=== PATIENT | female | born 1970 | race Caucasian/White ===

== ENCOUNTER 2018-01-29 20:43 | Emergency (ER) | payer MEDICAID ==
[2018-01-29 21:10] VITALS: BP 133/77; PULSE 68; RESP 18; TEMP 99; O2SAT 99
[2018-01-29] MEDS ORDERED: Tdap Vaccine 0.5 ml Vial (10-64 yrs) IM ONE (21:14)
--- NOTE | 2018-01-29 21:15 | ED PDOC ---
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 Patient came right to ED for eval. She is not sure of last tetanus shot. PMD: Pedro Cloud Past Medical History Reviewed: Historical Data, Nursing Documentation, Vital Signs Vital Signs: Last Vital Signs Temp 99.0 F 01/29/18 20:58 Pulse 68 01/29/18 20:58 Resp 18 01/29/18 20:58 BP 133/77 01/29/18 20:58 Pulse Ox 99 01/29/18 20:58 - Medical History PMH: No Chronic Diseases - Surgical History Surgical History: - Family History Family History: States: No Known Family Hx - Living Arrangements Living Arrangements: With Family - Social History Current smoker - smoking cessation education provided: No Alcohol: None Drugs: Denies - Immunization History Hx Tetanus Toxoid Vaccination: No (not sure of last tetanus) - Home Medications Home Medications: Ambulatory Orders Medication Instructions Recorded Ciprofloxacin [Cipro] 500 mg PO BID #14 tab 05/31/16 Dicyclomine [Bentyl] 20 mg PO Q6 PRN #12 tab 05/31/16 Famotidine [Pepcid] 40 mg PO DAILY #10 tab 05/31/16 Omeprazole 40 mg PO DAILY #30 tab 05/31/16 Amoxicillin/Clavulanate [Augmentin 1 tab PO BID #14 tab 01/29/18 875 MG-125 MG] Ibuprofen [Motrin Tab] 800 mg PO Q8 PRN #20 tab 01/29/18 - Allergies Allergies/Adverse Reactions: Allergies Allergy/AdvReac Type Severity Reaction Status Date / Time No Known Allergies Allergy Verified 06/21/15 15:40 Wells Criteria for PE - Wells Criteria for Pulmonary Embolism Clinical Signs and Symptoms of DVT: No P.E is #1 Diagnosis, or Equally Likely: No Heart Rate >100: No Immobilization at least 3 days;Surgery previous 4 weeks: No Previous, objectively diagnosed PE or DVT: No Hemoptysis: No Malignancy w/treatment within 6 months, or palliative: No Total Score: 0 Review of Systems ROS Statement: Except As Marked, All Systems Reviewed And Found Negative Skin: Positive for: Other (laceration to left ankle) Physical Exam - Reviewed Nursing Documentation Reviewed: Yes Vital Signs Reviewed: Yes - Physical Exam Appears: Positive for: Well, Non-toxic, No Acute Distress Head Exam: Positive for: ATRAUMATIC, NORMAL INSPECTION, NORMOCEPHALIC Skin: Positive for: Normal Color. Negative for: Rash Eye Exam: Positive for: Normal appearance Extremity: Positive for: Other (3 cm laceration noted to posterior aspect of left ankle, minimal active bleeding, full range of motion of left ankle and foot ) Neurologic/Psych: Positive for: Alert, Oriented - ECG O2 Sat by Pulse Oximetry: 99 (RA) Pulse Ox Interpretation: Normal - Other Rad Left ankle x-ray X-Ray: Interpreted by Me, Viewed By Me X-Ray Interpretation: no fx, no dis Medical Decision Making Medical Decision Making: Time: 21:14 Initial Impression: 47 year old female with left ankle laceration Initial Plan: --Tetanus Booster --IM 1 gram ancef --Left Foot X-ray Dr. Solares, podiatry resident at bedside for laceration repair. Patient given crutches and ortho shoe. Rx given for augmentin and motrin. Patient was instructed to follow up with podiatry clinic this week. Scribe Attestation: Documented by Elissa Jacobo, acting as a scribe for Jeannine Becerra PA-C. Provider Scribe Attestation: All medical record entries made by the Scribe were at my direction and personally dictated by me. I have reviewed the chart and agree that the record accurately reflects my personal performance of the history, physical exam, medical decision making, and the department course for this patient. I have also personally directed, reviewed, and agree with the discharge instructions and disposition. Disposition - Clinical Impression Clinical Impression: Laceration of ankle, Requires a booster tetanus - Patient ED Disposition Is Patient to be Admitted: No Counseled Patient/Family Regarding: Studies Performed, Diagnosis, Need For Followup, Rx Given - Disposition Referrals: Podiatry Clinic [Outside] Disposition: Routine/Home Disposition Time: 22:51 Condition: STABLE Additional Instructions: Keep wound clean and dry. Take prescription meds as directed. Call podiatry clinic Tuesday to arrange for follow-up visit for Tuesday. Prescriptions: Amoxicillin/Clavulanate [Augmentin 875 MG-125 MG] 1 tab PO BID #14 tab Ibuprofen [Motrin Tab] 800 mg PO Q8 PRN #20 tab PRN Reason: Pain, Moderate (4-7) Instructions: Laceration Repair With Stitches (DC), Diphtheria and Tetanus Toxoids, and Acellular Pertussis Vaccine Forms: [facility] (Georgian), [facility] ED School/Work Excuse Print Language: ICELANDIC
[2018-01-29] MEDS ORDERED: Lidocaine 1% Inj (20ml) ONE (21:56)
--- NOTE | 2018-01-30 01:17 | CP.PCM.CON ---
History of Present Illness - History of Present Illness History of Present Illness: Podiatry Consult- Dr. Talbert 47 F seen and evaluated at bedside for left posterior heel laceration. Patient seen at bedside with . Patient is seen resting comfortably in bed, in NAD, and AA0x3. Patient reports as she was leaving work, the metal door hit her at the back of her left ankle and caused a wound. Patient reports mild pain to the back of the left ankle. Denies numbness and tingling. Patient denies nausea , fever, shortness of breath, chest pains or chills. Patient reports afraid to ambulating since the incident. Patient tetanus status unknown PMD: Dr. Cloud PSH: SH: current smoker, drinking or illicit drug use ALL: NKDA MEDS: none Past Patient History - Past Social History Alcohol: None Drugs: Denies - PSYCHIATRIC Hx Substance Use: No - SURGICAL HISTORY Hx Surgeries: Yes Hx Section: Yes (x2) - ANESTHESIA Hx Anesthesia: Yes Hx Anesthesia Reactions: No Meds Home Medications: Home Medication List Medication Instructions Recorded Confirmed Type Amoxicillin/Clavulanate [Augmentin 1 tab PO BID #14 tab 01/29/18 Rx 875 MG-125 MG] Ibuprofen [Motrin Tab] 800 mg PO Q8 PRN #20 tab 01/29/18 Rx Allergies/Adverse Reactions: Allergies Allergy/AdvReac Type Severity Reaction Status Date / Time No Known Allergies Allergy Verified 06/21/15 15:40 Physical Exam - Constitutional Appears: Well, Non-toxic, No Acute Distress - Extremities Exam Extremities exam: Negative for: calf tenderness Additional comments: VASC: DP and PT 2/4 bilaterally, CFT < 3 seconds x 10 digits, temperature gradient warm to cool from proximal knees to distal toes, mild swelling noted to the posterior left heel ORTHO: moderate pain to palpation to posterior heel surrounding site of laceration, MM is 5/5 in all four compartments: dorsiflexion, plantarflexion, inversion and eversion, able to plantarflexion of the ankle with calf squeeze, integrity of the achilles tendon intact. NEURO: gross and protective sensation intact DERM: laceration at the posterior heel measuring approximately 3 cm x .2 cm x .3 cm, wound base granular, sangious drainage, no odor, no probe to bone, no tendon involvement appreciated, no erythema, no streaking, no purulence, no clinical signs of infection - Psychiatric Exam Psychiatric exam: Normal Affect, Normal Mood Results - Vital Signs Recent Vital Signs: Last Vital Signs Temp 99.0 F 01/29/18 20:58 Pulse 68 01/29/18 20:58 Resp 18 01/29/18 20:58 BP 133/77 01/29/18 20:58 Pulse Ox 99 01/29/18 23:02 Assessment & Plan - Assessment and Plan (Free Text) Assessment: 47 F with left posterior heel laceration- no infection Plan: Patient examined and evaluated Discussed plan in detail with attending Tetanus shot given in ED Dose of Ancef 1g IV given in ED X-rays reviewed- no bony pathology noted, Cleansed laceration with copious of betadine mixed saline solution Explained to patient benefits, complications, risks, and alternatives to procedure Patient understands and consented 10 cc of 1% lidocaine plain given in local block fashion to the left heel. 3-0 vicryl for deep closures and 3-0 prolene used to reapproximate the skin edges Patient tolerated procedure well Cleansed with saline, dressed with adaptatic, betadine soaked gauze, dsd, and kerlix Given location of laceration, patient to [facility] in surgical shoe with crutches Will follow up with Dr. Talbert in clinic on Tuesday Call for an appointment Recommends Augmentin PO for 7-10 days Motrin for pain RICE protocol encouraged Thank you for allowing us to participate in patient's care
--- NOTE | 2018-01-30 08:37 | RAD ---
PROCEDURE: Left Foot Radiographs. HISTORY: Trauma COMPARISON: None. FINDINGS: BONES: Bone alignment and mineralization are normal. There is no acute displaced fracture or bone destruction. There is a prominent plantar calcaneal spur. JOINTS: Normal. SOFT TISSUES: Normal. OTHER FINDINGS: None. IMPRESSION: No acute fracture or dislocation.
== END 2018-01-30 00:04 | disposition home or self-care (01) ==
LOC: H.ER 20:43
DX: S91.012A Laceration without foreign body, left ankle, initial encounter (principal); W26.8XXA Contact with other sharp object(s), not elsewhere classified, initial encounter; Y99.0 Civilian activity done for income or pay